=== PATIENT | female | born 2000 | race Caucasian/White ===

== ENCOUNTER 2018-03-23 17:47 | Emergency (ER) | payer SELFPAY ==
--- NOTE | 2018-03-23 18:23 | PDOC ---
Rapid Medical Evaluation Chief Complaint: Sore Throat Time Seen by Provider: 03/23/18 18:19 Medical Evaluation: 03/23/18 18:21 I have performed a brief in-person evaluation of this patient. The patient presents with a CC of: Fever and sore throat HPI: Pt is a 17 YO female who has had a sore throat and fever x 3 days. Pertinent PE: Skin: Clear Lungs: Clear Heart: RRR MS. Moves all extremities Neuro: Alert Psych: Age appropriate. I have ordered the following: RBS The patient will proceed to [facility] for further evaluation. Discharge Disposition - Diagnosis Strep throat - Referrals - Patient Instructions - Post Discharge Activity
[2018-03-23 18:29] VITALS: BP 130/64; PULSE 126; TEMP 101.7; BMI 24.6
[2018-03-23] MEDS ORDERED: AZITHROMYCIN 250 MG TABLET PO ONE (19:26)
--- NOTE | 2018-03-23 19:29 | PDOC ---
History of Present Illness - General Chief Complaint: Sore Throat Stated Complaint: COLD SYMPTOMS Time Seen by Provider: 03/23/18 18:19 - History of Present Illness Initial Comments: 03/23/18 19:28 17-year-old female with a past medical history significant for epilepsy presents for evaluation of runny nose and sore throat 5 days as well as dysuria and concerns for STDs over the last 3 days. She states she has 3 painful bumps about her vagina. She has no fever. She was sexually active unprotected for the first time 2 weeks ago. Past History - Past Medical History Allergies/Adverse Reactions: Allergies Allergy/AdvReac Type Severity Reaction Status Date / Time No Known Allergies Allergy Verified 03/23/18 18:21 Home Medications: Ambulatory Orders NK [No Known Home Medication] 03/23/18 COPD: No Other medical history: DENIES. - Suicide/Smoking/Psychosocial Hx Smoking History: Never smoked Review of Systems - Review of Systems Constitutional: No: Fever HEENTM: Yes: Nose Congestion : Yes: See HPI, Dysuria *Physical Exam - Vital Signs Last Vital Signs Temp Pulse Resp BP Pulse Ox 101.7 F H 126 H 19 130/64 96 03/23/18 18:21 03/23/18 18:21 03/23/18 18:21 03/23/18 18:21 03/23/18 18:21 - Physical Exam Comments: 03/23/18 19:29 HEAD: NC/AT EYES: Conjuntiva clear Ears: Canals and TM's normal NOSE: No d/c THROAT: Moist mucous membrances, oral pharanx clear, uvula midline NECK: Supple without adenopathy CARDIAC: S1 S2 LUNGS: CTA Full and Equal breath sounds ABDOMEN: Soft NT ND MS: Full ROM in all joints without edema NEUROLOGIC: No gross sensory or motor deficits, NVID SKIN: Normal color and temperature no lesions or rashes 03/23/18 19:58 : There are multiple vesicular lesions some ulcerated on the external vulva. There is greenish yellow mucopurulent material in the vaginal fault no adnexal or cervical motion tenderness Moderate Sedation - Procedure Monitoring Vital Signs: Procedure Monitoring Vital Signs Temperature 101.7 F H 03/23/18 18:21 Pulse Rate 126 H 03/23/18 18:21 Respiratory Rate 19 03/23/18 18:21 Blood Pressure 130/64 03/23/18 18:21 O2 Sat by Pulse Oximetry (%) 96 03/23/18 18:21 Medical Decision Making - Medical Decision Making 03/23/18 20:09 Discussed with the use of translation, the treatment plan as well as my exam findings. She will be treated for GC as well as herpes and Trichimonas, She has declined HIV testing. *DC/Admit/Observation/Transfer Diagnosis at time of Disposition: STD (female), Viral pharyngitis, Herpes genitalis in women Diagnosis at time of Disposition: (Ruled Out): Strep throat - Discharge Dispostion Disposition: HOME Condition at time of disposition: Stable Decision to Admit order: No - Referrals Referrals: Fariha Hernandez MD [Staff Physician] - - Patient Instructions Printed Discharge Instructions: Chlamydia: The Silent STD, How to Detect and Treat STDs, Facts About Sexually Transmitted Infections Additional Instructions: Please take the antibiotics as well as the antiviral medication I prescribed for you. Return to the emergency room should symptoms worsen or go unresolved and follow-up with the pipe supervisor in one to 2 days for further evaluation and treatment options. - Post Discharge Activity
[2018-03-23] MEDS ORDERED: AZITHROMYCIN 250 MG TABLET ONE (19:34)
[2018-03-23] MEDS ORDERED: ACETAMINOPHEN 500 MG TABLET (FP) PO ONE (19:58)
[2018-03-23] MEDS ORDERED: ACETAMINOPHEN 500 MG TABLET (FP) ONE (20:01)
[2018-03-23] MEDS ORDERED: AZITHROMYCIN 200 MG/5 ML BOTTLE PO ONE (20:38)
[2018-03-23 20:49] LABS: HCG,QUALITATIVE URINE Negative
[2018-03-23 22:13] LABS: URINE APPEARANCE CLOUDY; URINE BILIRUBIN NEGATIVE (<2.0 mg/dL); URINE COLOR YELLOW; URINE GLUCOSE (UA) NEGATIVE (NEGATIVE); URINE KETONE 1+ (NEGATIVE); URINE LEUK ESTERASE 2+ (NEGATIVE); URINE NITRITE NEGATIVE (NEGATIVE); URINE PROTEIN NEGATIVE (NEGATIVE); URINE UROBILINOGEN NEGATIVE mg/dL (0.2-1.0)
[2018-03-23 22:14] LABS: EPI CELLS FEW /HPF (FEW); URINE MUCUS RARE
== END 2018-03-23 22:24 | disposition home or self-care (01) ==
LOC: JER 17:47 → JERFT 17:47
DX: A64 Unspecified sexually transmitted disease (principal); J02.8 Acute pharyngitis due to other specified organisms; A60.09 Herpesviral infection of other urogenital tract
CPT/HCPCS: 36415; 81003; 81015; 84703; 87070; 87086; 87491; 87591; 87661; 87880; 99281-25